=== PATIENT | male | born 1975 | race Two or more races ===

== ENCOUNTER 2024-03-08 08:35 | Outpatient (AMB) | payer MEDICAID, SELFPAY ==
[2024-03-08 09:14] VITALS: BP 149/93; PULSE 60; RESP 18; TEMP 35.9; O2SAT 97; BMI 36.5
--- NOTE | 2024-03-08 09:14 | ORTHONT_ITS ---
Vital signs 03/08/24 09:14 Height 1.65 m Height Method Stated Weight 99.478 kg Weight Measurement Method Standing Scale BMI 36.5 BP 149/93 H Blood Pressure Source Automatic Cuff Blood Pressure Location Right Upper Arm Position Sitting Respiration 18 Pulse 60 Pulse Source Monitor Temp 96.7 F L Temp Source Temporal Artery Scan Pulse Oximetry (%) 97 Oxygen Delivery Method Room Air Med/Allergies Allergies & Medications Allergies No Known Drug Allergies Allergy (Verified 03/08/24 09:15) Medication Reconciliation meloxicam 7.5 mg tablet 7.5 mg PO QDAY #45 tabs 03/08/24 [Rx] Subjective Visit Visit for: new patient and knee Immunization / Flu Flu Vaccine in the Last 12 Months: No Flu Vaccine Exclusion Criteria: No Exclusion Criteria History of Present Illness Chief complaint: BILATERAL KNEE PAIN Date of injury / onset of symptoms: 2 YEARS Elyssa is a pleasant 48-year-old male with right greater than left knee pain. He reports he has a ball in the back of his right knee. He does not have his x- rays with him today. He is not any injections, anti-inflammatories, or physical therapy. 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 Exam Exam Patient is in no acute distress and is cooperative with the examination today. Breathing is nonlabored. In no respiratory distress. Bilateral extremities were evaluated and demonstrates sensation intact to light touch. Palpable pedal pulses are present. No significant edema is present. Bilateral hips were examined. The patient has no pain with log roll of the hips. Internal rotation to 30 degrees and external rotation to 30 degrees is painless. Negative FADIR. The left knee was examined. The left knee is in [varus] alignment. Range of motion from [0-115] degrees. Knee is stable to varus and valgus as well as AP translation with <5mm. Patient has a [negative] McMurrays. There is [no] pain with patellofemoral compression and [no] crepitus noted. The knee is [tender] to palpation [medially]. The right knee was also examined. The right knee is in [varus] alignment. Range of motion from [0-120] degrees. Knee is stable to varus and valgus as well as AP translation with <5mm. Patient has a [negative] McMurrays. There is [no] pain with patellofemoral compression and [no] crepitus noted. The knee is [tender] to palpation [medially]. He has a palpable cyst in the back of his knee Assessment and Plan Problem List (1) Degenerative arthritis of knee, bilateral: Status: Acute Plan: Patient is a 48-year-old male with bilateral knee pain and bilateral knee arthritis. We discussed nonoperative and operative options. We discussed that this is typically treated with nonoperative treatment including injections anti- inflammatories. I will see weightbearing x-rays and we can possibly do an injection at next visit. 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
== END 2024-03-08 09:51 | disposition home or self-care (01) ==
PROVIDERS: Supervising Provider Orthopaedic Surgery Adult Reconstructive Orthopaedic Surgery; Visit Provider Orthopaedic Surgery Adult Reconstructive Orthopaedic Surgery
DX: M17.0 Bilateral primary osteoarthritis of knee (principal); M25.562 Pain in left knee; M25.561 Pain in right knee; M71.20 Synovial cyst of popliteal space [Baker], unspecified knee
CPT/HCPCS: 99203; 99213; G0463

== ENCOUNTER 2024-03-22 09:57 | Outpatient (AMB) | payer MEDICAID, SELFPAY ==
--- NOTE | 2024-03-22 10:29 | ORTHONT_ITS ---
Vital signs 03/22/24 10:30 Height 1.65 m Height Method Stated Weight 99.932 kg Weight Measurement Method Standing Scale BMI 36.7 BP 138/89 H Blood Pressure Source Automatic Cuff Blood Pressure Location Left Upper Arm Position Sitting Respiration 18 Pulse 59 L Pulse Source Monitor Temp 97.5 F Temp Source Temporal Artery Scan Pulse Oximetry (%) 97 Oxygen Delivery Method Room Air Med/Allergies Allergies & Medications Allergies No Known Drug Allergies Allergy (Verified 03/22/24 10:31) Medication Reconciliation meloxicam 7.5 mg tablet 7.5 mg PO QDAY #45 tabs 03/22/24 [Rx] Subjective Visit Visit for: follow up visit, knee (BILATERAL), x-rays (RESULTS) and injections Immunization / Flu Flu Vaccine in the Last 12 Months: No Flu Vaccine Exclusion Criteria: No Exclusion Criteria History of Present Illness Chief complaint: XRAY RESULTS/REQ BILATERAL KNEE INJECTION Date of injury / onset of symptoms: 2 YEARS Elyssa is a pleasant 48-year-old male with right greater than left knee pain. He reports he has a ball in the back of his right knee. He does not have his x- rays with him today. He is not any injections, anti-inflammatories, or physical therapy. 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 Exam Exam Patient is in no acute distress and is cooperative with the examination today. Breathing is nonlabored. In no respiratory distress. Bilateral extremities were evaluated and demonstrates sensation intact to light touch. Palpable pedal pulses are present. No significant edema is present. Bilateral hips were examined. The patient has no pain with log roll of the hips. Internal rotation to 30 degrees and external rotation to 30 degrees is painless. Negative FADIR. The left knee was examined. The left knee is in [varus] alignment. Range of motion from [0-115] degrees. Knee is stable to varus and valgus as well as AP translation with <5mm. Patient has a [negative] McMurrays. There is [no] pain with patellofemoral compression and [no] crepitus noted. The knee is [tender] to palpation [medially]. The right knee was also examined. The right knee is in [varus] alignment. Range of motion from [0-120] degrees. Knee is stable to varus and valgus as well as AP translation with <5mm. Patient has a [negative] McMurrays. There is [no] pain with patellofemoral compression and [no] crepitus noted. The knee is [tender] to palpation [medially]. He has a palpable cyst in the back of his knee X-rays demonstrate mild to moderate knee arthritis of both knees. He would like bilateral knee injections today Assessment and Plan Problem List (1) Degenerative arthritis of knee, bilateral: Status: Acute Plan: Patient is a 48-year-old male with bilateral knee pain and bilateral knee arthritis. We discussed nonoperative and operative options. We discussed that this is typically treated with nonoperative treatment including injections anti- inflammatories. Recommend knee cortisone injections as patient would like to proceed with conservative treatment at this time. The risks and benefits of the procedure were reviewed with the patient and patient gave verbal consent to continue with the procedure. Procedure: performed by Dr. Mendez Using sterile technique the Bilateral knees were thoroughly prepped with alcohol, and approximately 1 cc of Kenalog 40 mg/mL and 4 cc of 1% lidocaine was injected into each knee without resistance into the medial tibial femoral joint space. The patient tolerated the procedure. We have sent him a prescription for meloxicam (2) Bakers cyst: Status: Acute Office Procedures GNS Level of Care Nursing/Assessment Patient Status: Established Patient Nursing Assessment/Reassesment: Medication Reconciliation, Update PMH in EMR and Vital Signs Coordination of Care: Complex Care and Chronic Disease 1-5, Education Complex Pt/Fam, Consent,records obtained, informed consent, 1 Ins Authorization, Results/Orders obtained and Staff clarify orders Special Needs: Language special needs Established Patient Charge Established Patient Point Assignment: 110 Established Patient Point Charge: EP Level 3 (80-115) Surgical Proc/IM SQ injection Major Surgical Procedure: Yes (BILATERAL KNEE INJECTION) Medication Given Medication Given Medication Given: Yes Documented Dose Given: 8 Route: Infiitration Medication Given Medication Given Medication Given: Yes Documented Dose Given: 2 Route: Infiitration Office Meds Xylocaine 10 mg/mL (1 %) injection solution Performing Provider: Donnell Mendez MD Performing Location: [facility] Administered by: Donnell Mendez MD on 03/22/24 13:02 Dose Route Admin Location Dispensed Lot Number Expiration Date [facility] Aviculturist 40 mL Infiltration 40 mL [id number] 12/17/26 73561-605-08 [facility] triamcinolone acetonide 40 mg/mL suspension for injection Performing Provider: Donnell Mendez MD Performing Location: [facility] Administered by: Donnell Mendez MD on 03/22/24 13:02 Dose Route Admin Location Dispensed Lot Number Expiration Date [facility] Aviculturist 80 mg Infiltration 2 mL [id number] 09/16/25 [id number] [employer] Past Medical History Past Medical History Have you ever been diagnosed with any of the following: Respiratory Problems Smoking: Yes Smoking Cessation Counseling: No Smoking Exposure: Yes
[2024-03-22 10:30] VITALS: BP 138/89; PULSE 59; RESP 18; TEMP 36.4; O2SAT 97; BMI 36.7
== END 2024-03-22 11:01 | disposition home or self-care (01) ==
LOC: HODSRG 09:57
PROVIDERS: Supervising Provider Orthopaedic Surgery Adult Reconstructive Orthopaedic Surgery; Visit Provider Orthopaedic Surgery Adult Reconstructive Orthopaedic Surgery
DX: M17.0 Bilateral primary osteoarthritis of knee (principal); M25.562 Pain in left knee; M25.561 Pain in right knee; M71.20 Synovial cyst of popliteal space [Baker], unspecified knee
CPT/HCPCS: 20610; 99213; J3301; J3490; G0463